=== PATIENT | female | born 1990 | race Caucasian/White ===

== ENCOUNTER 2016-12-08 06:29 | Emergency (ER) | payer OTHER ==
[~2016-12-08] VITALS: Wt 76.0 kg
[~2016-12-08 06:29] MED LIST: IBUP800T25 PO; PERCOCET PO; PRENAT PO
--- NOTE | 2016-12-08 07:58 | RADRPT ---
PROCEDURE: XR Chest. CLINICAL INDICATION: chest pain , cough TECHNIQUE: PA and lateral views of the chest were obtained COMPARISON: None FINDINGS: The heart and mediastinum are within normal limits. The lungs are clear. There is no pleural effusion or pneumothorax. The bones and soft tissues are unremarkable. RPTAT: AA IMPRESSION: No acute disease. .Pantera Roayl MD, MD Date Time Electronically viewed and signed by .Pantera Royal MD, on 12/08/2016 07:58 .S/
--- NOTE | 2016-12-08 08:01 | ERD ---
ER Documentation Chief Complaint Date/Time DATE: 12/08/16 Chief Complaint Cough, fever HPI The patient is a 26-year-old female who presents to the Emergency Department with complaint of fevers, body aches, cough and nasal congestion for the past day. The patient reports that she has been experiencing a productive cough of green-colored sputum, with associated nasal congestion, myalgias and fevers with Tmax 102 F. She has been tried several [id number] medications, with no significant relief of symptoms. She denies any neck pain, neck stiffness, new rashes, sore throat, ear pain. Denies abdominal pain, nausea, vomiting, diarrhea. Denies dysuria, hematuria or flank pain. The patient presents to the ED for evaluation with her daughter, who has been experiencing similar symptoms over the past 24 hours. Of note, the daughter's influenza swab is positive for Influenza A. ROS All systems reviewed and are negative except as per history of present illness. Medications Home Meds Active Scripts Guaifenesin-Codeine Phosphate* (Guaifenesin* AC Cough Syrup) 473 Ml Liquid, 10 ML PO QHS Y for COUGH, #120 ML Prov:UMM DONOHUE PA-C 12/08/16 Oseltamivir Phosphate* (Tamiflu*) 75 Mg Capsule, 75 MG PO BID for 5 Days, CAP Prov:UMM DONOHUE PA-C 12/08/16 Oxycodone Hcl/Acetaminophen (Percocet) 1 Tab Tab, 2 TAB PO Q4H Y for PAIN LEVEL 6-10, #30 TAB 0 Refills Prov:FITO HATHAWAY MD 03/19/16 Ibuprofen* (Ibuprofen*) 800 Mg Tablet, 800 MG PO Q8, #20 TAB 0 Refills Prov:FITO HATHAWAY MD 03/19/16 Reported Medications Multivit/Min/Fol Ac/Iron/Pren* ( S*) 1 Tab Tab, 1 TAB PO DAILY, TAB 12/01/15 Allergies Allergies: Coded Allergies: No Known Allergies (Verified Allergy, Mild, 03/23/16) PMhx/Soc History of Surgery: Yes (c/section x1) Anesthesia Reaction: No Hx Neurological Disorder: No Hx Respiratory Disorders: No Hx Cardiac Disorders: No Hx Psychiatric Problems: Yes (ANXIETY, DEPRESSION) Hx Miscellaneous Medical Probl: No Hx Alcohol Use: No Hx Substance Use: No Hx Tobacco Use: No Physical Exam Vitals Vital Signs Date Time Temp Pulse Resp B/P Pulse Ox O2 Delivery O2 Flow Rate FiO2 12/08/16 06:35 98.7 87 18 119/71 98 Physical Exam GENERAL: Well-developed, well-nourished, in no acute distress HEENT: Head is normocephalic, atraumatic. No scleral pallor or icterus. Pupils equal, round and reactive to light. Extraocular movements intact. Conjunctiva pink. Nares are patent bilaterally. Bilaterally tympanic membranes are clear with no evidence of erythema, effusion or dulling of the light reflex. Moist mucous membranes. No pharyngeal erythema or exudates. Uvula is midline. NECK: Supple. No masses, no tenderness, no lymphadenopathy. Trachea midline. No nuchal rigidity. Full range of motion. RESPIRATORY: Lungs are clear to auscultation bilaterally. No rales, rhonchi or wheezing. Equal breath sounds. Normal expiratory effort. CARDIOVASCULAR: Regular rate and rhythm. S1 and S2 normal. No murmurs, rubs, or gallops. GASTROINTESTINAL: Abdomen is soft, nontender, and nondistended. Normal bowel sounds. FLANK: No CVA tenderness, no mass or swelling. BACK: No midline tenderness. EXTREMITIES: No clubbing, cyanosis, or edema. Normal skin perfusion. Moving all extremities. Muscle tone is normal. No focal swelling or erythema. Distal pulses are palpable, 2+ bilaterally. Capillary refill is less than 2 seconds. NEUROLOGIC: The patient is alert, awake, and oriented x 3. No focal neurologic deficits. Speech is normal. INTEGUMENT: Skin is clean, dry and intact. No rashes, lesions or petechiae present. Normal turgor. PSYCHIATRIC: Appropriate; Cooperative. Procedures/MDM DIAGNOSTIC TESTS AND INTERPRETATION: PROCEDURE: XR Chest. CLINICAL INDICATION: chest pain , cough TECHNIQUE: PA and lateral views of the chest were obtained COMPARISON: None FINDINGS:The heart and mediastinum are within normal limits. The lungs are clear. There is no pleural effusion or pneumothorax. The bones and soft tissues are unremarkable. IMPRESSION:No acute disease. .Pantera Royal MD, MD Date Time Electronically viewed and signed by .Pantera Royal MD, MD on 12/08/2016 07: 58 MEDICAL DECISION MAKING: This is a 26-year-old female presenting to the emergency department with one day of fevers, nasal congestion, myalgias, and cough. She had no significant abnormalities on physical examination. On initial presentation, the patient was afebrile, with no tachycardia, no tachypnea, no signs of respiratory distress. She had a normal O2 saturation on room air. The differential diagnosis includes, but is not limited to, upper respiratory infection, sepsis, meningitis, otitis media, pneumonia, pertussis, croup, pharyngitis, otitis externa, bronchitis. Chest x-ray reveals no acute pulmonary abnormalities. No evidence of acute sepsis, bacteremia, dehydration, meningitis or other life-threatening etiology. After rest, the patient has no new complaints and remained stable, with no signs of distress. Upon my review and interpretation of the patient's presentation and overall ER course, I believe the patient's symptoms are most consistent with febrile illness, upper respiratory infection, suspicious for influenza. The patient is accompanied in the ED with her daughter, who has just received a positive influenza A result. Therefore, will treat the patient empirically with Tamiflu. The patient is well-appearing. The patient had no focal evidence of pneumonia. Patient's neck was supple, with no altered mental status, and therefore I doubt meningitis. Oropharynx was clear, with no erythema, exudates, petechiae, with no associated anterior cervical lymphadenopathy, and therefore I doubt streptococcal pharyngitis. Tympanic membranes were clear bilaterally, with no erythema or bulging noted, and therefore I doubt otitis media. At this time, the patient is in stable condition and not experiencing any signs of distress, and therefore can be discharged home with a prescription for Tamiflu and Guaifenesin AC and strict return precautions for signs of deteriorating or worsening condition. The patient is advised to follow up with her primary care provider within 2-3 days for reevaluation and further management or return to the ER sooner for any worsening symptoms. I shared my medical decision making and plan with the patient at length and in great detail, and they verbally understand and agree with the plan for further observation and care as an outpatient. At the time of discharge all questions were answered. Departure Diagnosis: Primary Impression: Influenza-like illness Condition: Stable Patient Instructions: Influenza (Adult), Uri, Viral, No Abx (Adult) Additional Instructions: Call your primary care doctor TOMORROW for an appointment during the next 2-3 days.See the doctor sooner or return here if your condition worsens before your appointment time. UMM DONOHUE PA-C Dec 08, 2016 08:01
[2016-12-08] MEDS ORDERED: OSLT75C PO (08:33)
[2016-12-08] MEDS ORDERED: GUAI473L22 PO (08:34)
== END 2016-12-08 08:47 | disposition home or self-care (01) ==
LOC: FTE 06:29
DX: R05 Cough (principal); R50.9 Fever, unspecified
CPT/HCPCS: 71020; Z7502; 99283

== ENCOUNTER 2018-08-20 23:30 | Inpatient (IN) | END 2018-08-22 16:40 | disposition home or self-care (01) | DRG 770 ==